=== PATIENT | female | born 1960 ===

== ENCOUNTER 2019-06-27 11:47 | Emergency (ER) | payer OTHER ==
[~2019-06-27] VITALS: Ht 152.4 cm; Wt 61.2 kg
[~2019-06-27 11:47] MED LIST: COZAAR100 MG; LIPITOR40 MG; NORVASC10 MG
[2019-06-27] MEDS ORDERED: GLUCOTROL10 MG (12:52)
[2019-06-27] MEDS ORDERED: JANUVIA100 MG (12:52)
[2019-06-27] MEDS ORDERED: SKELAXIN800 MG PO (15:58)
[2019-06-27] MEDS ORDERED: CELEBREX200MG PO (15:58)
== END 2019-06-27 16:10 | disposition home or self-care (01) ==
LOC: ER 11:47
DX: M54.89 Other dorsalgia (principal)